=== PATIENT | female | born 1955 | race Caucasian/White ===

== ENCOUNTER 2022-07-25 10:26 | Outpatient (CLI) | payer OTHER, SELFPAY ==
--- NOTE | 2022-07-25 10:49 | CT_ITS ---
WS: [id number] CT NECK TECHNIQUE: Contrast-enhanced CT of the neck with coronal and sagittal reformatted images. CLINICAL INFORMATION: DYSPHAGIA COMPARISON: None. DLP: 214.[address] scans at [facility] use at least one of these dose optimization techniques: automated e xposure control; mA and/or kV adjustment per patient size (includes targeted exams where dose is matc hed to clinical indication); or iterative reconstruction. FINDINGS: Mastoid air cells well aerated. Paranasal sinuses are well aerated. Parotid glands are normal. Normal submandibular glands. Prominent bilateral submandibular space and level 2 cervical lymph nodes. Norm al posterior nasopharynx. Normal palatine tonsils. Normal parapharyngeal fat. Normal posterior nasopharynx. No evidence of supraglottic or glottic mass. Normal subglottic airway. Nodular thyroid the largest in the RIGHT measuring 6.6 x 2.3 CM. Advanced spondylitic changes cervica l spine. Straightening of the normal cervical lordosis. Moderate central canal stenosis due to disc o steophyte complexes at C5-C6 and C6-C7. CT/CT neck w con* [id number] IMPRESSION: 1. Prominent bilateral submandibular and level 2 cervical lymph nodes likely r eactive. No other enlarged cervical lymph nodes. 2. No evidence of supraglottic or glottic mass. 3. Normal posterior nasopharynx. 4. Nodular thyroid with the largest nodule on the RIGHT measuring 2.3 x 1.6 cm . 5. Moderate spondylitic changes cervical spine.
[2022-07-25 11:37] LABS: Blood Urea Nitrogen 21 mg/dL (8-23)
[2022-07-25] MEDS: iohexol 350 mg/mL 500 mL Btl (per mL) IV (12:13)
== END 2022-07-25 10:27 | disposition home or self-care (01) ==
PROVIDERS: PCP Family Medicine; Visit Provider Specialist
DX: R13.10 Dysphagia, unspecified (principal); E04.2 Nontoxic multinodular goiter
CPT/HCPCS: 36415; 70491; 82565; 84520; Q9967

== ENCOUNTER → 2023-08-10 11:20 | Outpatient (BNVA) | payer OTHER, SELFPAY | PROVIDERS: PCP Family Medicine; Visit Provider Orthopaedic Surgery | DX: M54.50 Low back pain, unspecified (principal); M54.9 Dorsalgia, unspecified; G89.29 Other chronic pain | CPT/HCPCS: 72110 ==

== ENCOUNTER → 2023-08-21 08:36 | Outpatient (BNVA) | payer OTHER, SELFPAY | PROVIDERS: PCP Family Medicine; Visit Provider Podiatrist Foot & Ankle Surgery | DX: M79.671 Pain in right foot (principal); M76.61 Achilles tendinitis, right leg; M92.61 Juvenile osteochondrosis of tarsus, right ankle; M77.31 Calcaneal spur, right foot | CPT/HCPCS: 73630 ==

== ENCOUNTER → 2025-01-22 09:43 | Outpatient (BNVA) | payer BC, SELFPAY | PROVIDERS: Visit Provider Nurse Practitioner | DX: I10 Essential (primary) hypertension (principal); R73.03 Prediabetes | CPT/HCPCS: 80053; 80061; 83036; 84443; 85025 ==

== ENCOUNTER → 2025-02-20 10:13 | Outpatient (BNVA) | payer BC, SELFPAY | PROVIDERS: PCP Nurse Practitioner; Visit Provider Nurse Practitioner | DX: I10 Essential (primary) hypertension (principal) | CPT/HCPCS: 80048 ==

== ENCOUNTER → 2025-04-18 09:20 | Outpatient (BNVA) | payer BC, SELFPAY | PROVIDERS: PCP Nurse Practitioner; Visit Provider Nurse Practitioner | DX: I10 Essential (primary) hypertension (principal) | CPT/HCPCS: 80048; 81000 ==